=== PATIENT | female | born 1985 | race Caucasian/White ===

== ENCOUNTER 2016-10-20 10:13 | Inpatient (IN) | payer MEDICAID ==
[~2016-10-20] VITALS: Ht 157.5 cm; Wt 109.8 kg
[~2016-10-20 10:13] MED LIST: OXYTOCIN 30 UNITS/LR 500 ML BAG IV ONE
[2016-10-20 10:21] VITALS: BP 132/84; PULSE 113; RESP 19; Ht 157.5 cm; Wt 109.8 kg
--- NOTE | 2016-10-20 10:36 | TRIAGE ---
OB Triage Datetime Report Generated by CPN: 10/20/2016 10:36 Datetime: 10/20/2016 10:24 Vaginal Exam Dilatation (cms): 1.0 Effacement (%): 50 Station: -3 Exam By: VALERIE REYNOSO Vaginal Bleeding: None Cervix, Consistency: Soft Cervix, Position: Midposition Datetime: 10/20/2016 10:19 Assessment Type: Triage Maternal Assessment Level of Consciousness: Fully Conscious DTR's/Clonus: DTRs 2+; No Clonus Headache: Denies Blurred Vision: No Respiratory Effort: Unlabored; Regular Rhythm; Equal Expansion Breath Sounds, Left: Clear and Equal Breath Sounds, Right: Clear and Equal Nausea/Vomiting: Denies RUQ Epigastric Pain: Denies Lower Extremities Edema: None Degree: None Upper Extremities Edema: None Degree: None Facial Edema: None Fall Risk Assessment History of Falling: (0) No Secondary Diagnosis: (0) No Ambulatory Aid: (0) Bedrest/Nurse Assist IV Therapy: (0) No Gait: (0) Normal/Bedrest/Immobile Mental Status: (0) Oriented to Own Ability Fall Score: 0 Fall Risk Score Definition: No Risk: No action required Datetime: 10/20/2016 10:15 EGA: 36.2 Datetime: 10/20/2016 10:12 Time of Arrival: 10/20/2016 10:12 Arrived By: Ambulatory Arrived From: Home Chief Complaint: PT CAME IN C/O POSSIBLE SROM SINCE 0600 THIS AM, PT STYATES FLUID BEEN LIKE YELLO WISH COLOR AND C/O CONT LEAKING SINCE THEN. DENIES ANY OTHER COMPLAINT AT THIS TIME Movement: Present Contractions: Denies/Absent Rupture of Membranes: Unsure Vaginal Bleeding: None Vaginal Discharge: Denies Recent Sexual Intercouse: Denies Abdominal Trauma: Not Applicable Patient Complaints: Other Additional Patient Complaints: NONE Time Provider Notified: 10/20/2016 10:32 Provider Notified: FROYLAN Initial Plan: MONITOR, NITRAZINE TEST, VE
[2016-10-20] MEDS ORDERED: METHYLERGONOVINE 0.2 MG INJ IM PRN ×2 (11:00→23:30)
[2016-10-20] MEDS ORDERED: CEFAZOLIN 2 GM/50 ML (PMX) 50 ML IV SCH (11:00)
[2016-10-20] MEDS ORDERED: OXYTOCIN 30 UNITS/LR 500 ML IV PRN ×2 (11:00→23:30)
[2016-10-20] MEDS ORDERED: CARBOPROST 250 MCG INJ IM PRN ×2 (11:00→23:30)
[2016-10-20] MEDS ORDERED: MISOPROSTOL 200 MCG TAB PR PRN ×2 (11:00→23:30)
[2016-10-20] MEDS ORDERED: OXYTOCIN 30 UNITS/LR 500 ML IV SCH ×3 (11:00→14:00)
--- NOTE | 2016-10-20 11:31 | RADRPT ---
PROCEDURE: OB ultrasound for biophysical profile CLINICAL INDICATION: Spontaneous rupture of membranes TECHNIQUE: Multiple sonographic images of the pelvis were obtained. Transabdominal views of the g ravid uterus are available for review. The images were reviewed on a PACS workstation. COMPARISON: None FINDINGS: breathing movement = 2/2 tone = 2/2 motion = 2/2 BRADEN = 2/2 BRADEN = 7.2 cm Single live intrauterine with cardiac activity of 144 bpm. position is cephal ic. The placenta is anterior. IMPRESSION: 1. Single live intrauterine gestation. 2. Biophysical profile = 8/8. 3. BRADEN = 7.2 cm. RPTAT: HH .Crys Vizcaino MD, MD Date Time Electronically viewed and signed by .Crys Vizcaino MD, on 10/20/2016 11:31 .G/
[2016-10-20 11:57] LABS: ADD SCAN DIFF NO
[2016-10-20 12:09] LABS: BASOPHILS % 0.3 % (0.0-2.0); EOSINOPHILS % 0.2 % (0.0-7.0); HEMATOCRIT 40.1 % (37.0-47.0); HEMOGLOBIN 13.4 g/dl (12.0-16.0); LYMPHOCYTES # 3.1 10^3/ul (0.8-2.9); LYMPHOCYTES % 28.2 % (15.0-51.0); MEAN CORPUSCULAR HEMOGLOBIN 27.9 pg (29.0-33.0); MEAN CORPUSCULAR HGB CONC 33.4 g/dl (32.0-37.0); MEAN CORPUSCULAR VOLUME 83.4 fl (82.0-101.0); MEAN PLATELET VOLUME 11.8 fl (7.4-10.4); MONOCYTE # 0.7 10^3/ul (0.3-0.9); NEUTROPHIL # 7.1 10^3/ul (1.6-7.5); PLATELET COUNT 247 10^3/UL (140-415); RED BLOOD COUNT 4.81 10^6/ul (4.20-5.40); WHITE BLOOD COUNT 10.9 10^3/ul (4.8-10.8)
[2016-10-20 12:13] LABS: INR 1.01; PROTIME 13.3 Sec (12.2-14.2)
[2016-10-20 12:14] LABS: PARTIAL THROMBOPLASTIN TIME 28.7 Sec (25.0-35.0)
[2016-10-20] MEDS: LACTATED RINGER'S 1,000 ML IV SCH ×3 (12:35→23:12)
[2016-10-20] MEDS ORDERED: AMPICILLIN 2 GM/NS (PMX) 100 ML IV ONE (14:00)
[2016-10-20] MEDS ORDERED: AMPICILLIN 1 GM/NS (PMX) 50 ML IV SCH (18:00)
--- NOTE | 2016-10-20 18:18 | PREOPHP ---
DATE OF ADMISSION: 10/20/2016 HISTORY OF PRESENT ILLNESS: A 31-year-old female 3, para 1-1-0-2, estimated date of deliver y 11/17/2016 at 36 weeks' gestation presented with spontaneous rupture of membranes. PAST MEDICAL HISTORY: Unremarkable. PAST SURGICAL HISTORY: section x2. ALLERGIES: NO KNOWN ALLERGIES. FAMILY HISTORY: Noncontributory. PHYSICAL EXAMINATION: VITAL SIGNS: Patient is afebrile. Vital signs stable. HEAD, NECK AND CHEST: Within normal limits. ABDOMEN: Soft, nontender and gravid. EXTREMITIES: Within normal limits. NEUROLOGIC: Within normal limits. IMPRESSION: at 36 weeks with previous section x2. Spontaneous rupture of membra raquel. The patient desires sterilization. PLAN: Delivery by repeat section and bilateral tubal ligation. Risks, benefits and altern atives of the procedure were explained to the patient. The patient has been counseled about all of her contraceptive options. It was explained to the patient that with bilateral tubal ligation there is a chance of failure resulting in ectopic and/or intrauterine . After residential substance abuse counselor ing, the patient said she understood and gave informed consent for the procedures. Dictated By: EDGAR CALVERT/NTS Conf#: [id number] DID#: [id number]
[2016-10-20] MEDS ORDERED: morphine SULFATE/PF (10 MG/10 ML) INJ ONE (19:08)
[2016-10-20] MEDS ORDERED: ONDANSETRON 4 MG INJ ONE (19:09)
[2016-10-20] MEDS ORDERED: OXYTOCIN 10 UNIT INJ ONE (19:09)
[2016-10-20] MEDS ORDERED: PHENYLephrine (100 MCG/ML) 5ML SYG ONE (19:09)
--- NOTE | 2016-10-20 22:01 | DELSUM ---
Delivery Summary A-C Datetime Report Generated by CPN: 10/20/2016 22:00 DELIVERY PERSONNEL Document Processing Specialist: Tran, Michelle MATERNAL INFORMATION Delivery Anesthesia: Spinal Medications in Delivery: SEE ANESTHESIA RECORDS Estimated Blood Loss (ml): 500 Placenta Cultured: No Maternal Complications: PROM; Other RN Comments: 109.8kg, bmi 44.3, #3 r c/s, prom at 36.2wks, LABOR SUMMARY EDC: 11/15/2016 00:00 No. Babies in Womb: 1 Attempted: No Labor Anesthesia: None LABOR INFORMATION Reason for Induction: Not Applicable Onset of Labor: 10/20/2016 06:00 Oxytocin: N/A Group B Beta Strep: Done, Result Unknown Antibiotics # of Doses: X3 Antibiotics Time of Last Dose: 10/20/2016 19:15 Steroids Given: None Reason Steroids Not Administered: Not Applicable MEMBRANES Membranes Rupture Method: Spontaneous Rupture of Membranes: 10/20/2016 06:00 Length of Rupture (hr): 13.73 Amniotic Fluid Color: Clear Amniotic Fluid Amount: Moderate Amniotic Fluid Odor: None STAGES OF LABOR Stage 3 hr: 0 Stage 3 min: 2 Total Time in Labor hr: 13 Total Time in Labor min: 46 CSECTION DELIVERY Primary Indication: Repeat Elective Secondary Indication: Repeat Elective CSection Urgency: Elective CSection Incidence: Repeat Labor: No Labor Elective: Elective CSection Incision: Lower Uterine Transverse BABY A INFORMATION Infant Delivery Date/Time: 10/20/2016 19:44 Method of Delivery: Born in Route : No : N/A Forceps: N/A Vacuum Extraction: N/A Shoulder Dystocia : N/A SHOULDER DYSTOCIA BABY A Infant Delivery Date/Time: 10/20/2016 19:44 PRESENTATION/POSITION BABY A Presentation: Cephalic Cephalic Presentation: Vertex Breech Presentation: N/A PLACENTA INFORMATION BABY A Placenta Delivery Time : 10/20/2016 19:46 Placenta Method of Delivery: Manual Removal Placenta Status: Delivered SCORES BABY A Heart Rate 1 min: >100 bpm Resp Effort 1 min: Good Cry Reflex Irritability 1 min: Cough/Sneeze/Pulls Away Muscle Tone 1 min: Active Motion Color 1 min: Blue/Pale Resuscitation Effort 1 min: Tactile Stimulation SCORE 1 MIN: 8 Heart Rate 5 min: >100 bpm Resp Effort 5 min: Good Cry Reflex Irritability 5 min: Cough/Sneeze/Pulls Away Muscle Tone 5 min: Active Motion Color 5 min: Body [address], Extremit Blue Resuscitation Effort 5 min: Tactile Stimulation SCORE 5 MIN: 9 INFORMATION BABY A Gestational Age at Delivery: 36.2 Gestational Status: Late - 34- 36.6 Weeks Infant Outcome : Liveborn Condition : Stable Sex: Male IDENTIFICATION/MEDS BABY A ID Band Number: [id number] ID Band Location: Right Leg; Left Arm Sensor Applied: Yes Sensor Number: [id number] Sensor Location : Cord Clamp Vitamin K Given : Not Given Erythromycin Given: Not Given WEIGHT/LENGTH BABY A Infant Birthweight (gm): 2605 Infant Weight (lb): 5 Infant Weight (oz): 12 Length (in): 17.50 Length (cm): 44.45 CORD INFORMATION BABY A No. Cord Vessels: 3 Nuchal Cord : N/A Cord Blood Taken: Yes Suction: Mouth; Nose ASSESSMENT BABY A Complications: None Physical Findings at Delivery: Within Normal Limits Respirations: Appears Normal Benefits Coordinator/ALS Called : No Infant Care By: Heather REGAN Transferred To: Remains with Mother
--- NOTE | 2016-10-20 22:16 | OPR ---
DATE OF OPERATION: 10/20/2016 PREOPERATIVE DIAGNOSES: 1. at 36 weeks with previous section x2, with spontaneous rupture of membranes. 2. The patient desires surgical sterilization. POSTOPERATIVE DIAGNOSES: 1. at 36 weeks with previous section x2, with spontaneous rupture of membranes. 2. The patient desires surgical sterilization. 3. Omental adhesions. OPERATION PERFORMED: Repeat low-transverse section, lysis of adhesions, bilateral tubal li gation. SURGEON: Edgar Montano MD INFORMATION SYSTEMS ARCHITECT: Betito Oliveira MD ANESTHESIA: Spinal. ANESTHESIOLOGIST: Vinh Martinez MD PROCEDURE: The patient was taken to the operating room and placed on the operating table. After rodriguez ccessful spinal anesthesia was given, the patient was placed in supine position. The area was prepa red and draped in the usual sterile fashion. Spinal anesthesia was tested and was satisfactory. Us ing a scalpel, a Pfannenstiel incision was made about 2 fingerbreadths above the symphysis pubis. T he incision was carried to the fascia. The fascia was incised and extended bilaterally with King sc issors. Two Kochers were used to separate the fascia from the muscle. The muscle was dissected in midline down to peritoneum. The peritoneum was secured with 2 Kellys and incised with Metzenbaum sc issors. Upon entering the peritoneal cavity, there were omental adhesions noted to the anterior asp ect of the uterus. Using Bovie, sharp lysis of adhesions was performed. Using a scalpel, a small t ransverse incision was made on the lower segment of the uterus. Upon entering the uterine cavity, b andage scissors were inserted to extend the incision bilaterally, curved up. Baby was delivered fro m cephalic presentation. After suctioning clear of amniotic fluid, the baby was handed off to the n eonatologist in attendance. Apgars were 8 and 9. The placenta was delivered without difficulty. U terus was closed with #1 Monocryl continuous locked. After assuring hemostasis, both ovaries and tu bes were inspected, all looked normal. The right fallopian tube was grasped with a Anza clamp. Using 0 plain suture ligature, a 5 cm segment of the right fallopian tube was doubly ligated. Using Metzenbaum scissors, a portion of the right fallopian tube above the ligated area was excised and s ent to pathology. Same procedure was repeated on the left fallopian tube. After assuring hemostasi s, the peritoneal cavity was irrigated with warm saline. The peritoneum was closed with 2-0 Vicryl continuous. The fascia was closed with #1 Vicryl continuous in 2 segments. Subcutaneous tissue was reapproximated with 2-0 plain. The skin was closed with perla. ESTIMATED BLOOD LOSS: 500 mL. COMPLICATIONS: None. COUNTS: All counts were correct. Dictated By: EDGAR CALVERT/RENALDO Conf#: [id number] DID#: [id number]
[2016-10-20 23:00] VITALS: BP 109/55; PULSE 73; RESP 20
[2016-10-20] MEDS ORDERED: OXYCODONE/ACETAMINOPHEN (5/325) TAB PO PRN ×2 (23:30)
[2016-10-20] MEDS ORDERED: LANOLIN 7 GM TUBE TOP PRN (23:30)
[2016-10-21] MEDS: OXYTOCIN 30 UNITS/LR 500 ML IV SCH ×2 (00:50→04:43)
[2016-10-21] MEDS: KETOROLAC 30 MG INJ IV PRN ×2 (02:00→16:06)
[2016-10-21 04:00] VITALS: BP 102/46; PULSE 80; RESP 18
[2016-10-21 08:19] LABS: ADD SCAN DIFF NO
[2016-10-21 08:28] LABS: BASOPHILS % 0.2 % (0.0-2.0); EOSINOPHILS # 0.1 10^3/ul (0.0-0.5); EOSINOPHILS % 0.8 % (0.0-7.0); HEMOGLOBIN 11.4 g/dl (12.0-16.0); LYMPHOCYTES # 2.2 10^3/ul (0.8-2.9); LYMPHOCYTES % 24.1 % (15.0-51.0); MEAN CORPUSCULAR HEMOGLOBIN 27.7 pg (29.0-33.0); MEAN CORPUSCULAR HGB CONC 32.6 g/dl (32.0-37.0); MONOCYTE # 0.9 10^3/ul (0.3-0.9); MONOCYTES % 9.8 % (0.0-11.0); NEUTROPHIL # 5.9 10^3/ul (1.6-7.5); NEUTROPHILS % 64.9 % (39.0-77.0); PLATELET COUNT 176 10^3/UL (140-415); RED BLOOD COUNT 4.12 10^6/ul (4.20-5.40); RED CELL DISTRIBUTION WIDTH 14.3 % (11.5-14.5); WHITE BLOOD COUNT 9.1 10^3/ul (4.8-10.8)
[2016-10-21 08:30] VITALS: BP 110/55; PULSE 81; RESP 20
[2016-10-21] MEDS: SENNA/DOCUSATE NA (8.6MG/50MG) TAB PO SCH ×2 (09:38→21:08)
--- NOTE | 2016-10-21 15:56 | QN ---
Documentation Comment No complaint Afebrile VSS Abdomen soft POD #1 Ambulate Advance diet. EDGAR GALEANO MD Oct 21, 2016 15:55
[2016-10-21] MEDS: LACTATED RINGER'S 1,000 ML IV SCH ×3 (16:32→23:12)
[2016-10-21 16:49] VITALS: BP 104/53; PULSE 91; RESP 18
[2016-10-21 20:00] VITALS: BP 111/63; PULSE 95; RESP 18
[2016-10-21] MEDS: IBUPROFEN 800 MG TAB PO SCH (21:53)
[2016-10-22 00:45] VITALS: BP 97/53; PULSE 73; RESP 20
[2016-10-22 04:45] VITALS: BP 95/54; PULSE 80; RESP 18
[2016-10-22] MEDS: IBUPROFEN 800 MG TAB PO SCH ×3 (06:13→21:42)
[2016-10-22] MEDS: LACTATED RINGER'S 1,000 ML IV SCH (07:12)
[2016-10-22 08:00] VITALS: BP 115/58; PULSE 83; RESP 18
[2016-10-22] MEDS: SENNA/DOCUSATE NA (8.6MG/50MG) TAB PO SCH ×2 (09:33→21:14)
[2016-10-22 16:00] VITALS: BP 96/58; PULSE 81; RESP 18
--- NOTE | 2016-10-22 18:48 | QN ---
Documentation Comment no complaint Afebrile VSS Abdomen soft Stable Continue with present care. EDGAR GALEANO MD Oct 22, 2016 18:47
[2016-10-22 20:00] VITALS: BP 120/71; PULSE 87; RESP 18
[2016-10-23 03:45] VITALS: BP 93/54; PULSE 78; RESP 19
[2016-10-23] MEDS: IBUPROFEN 800 MG TAB PO SCH ×3 (05:33→18:50)
[2016-10-23 08:30] VITALS: BP 110/59; PULSE 69; RESP 18
[2016-10-23] MEDS ORDERED: DIPHTH/TET/ACEL PERTUSS (ADULT) 0.5 ML VIAL IM* ONE (09:00)
[2016-10-23] MEDS: SENNA/DOCUSATE NA (8.6MG/50MG) TAB PO SCH (09:00)
[2016-10-23 16:00] VITALS: BP 108/65; PULSE 77; RESP 20
--- NOTE | 2016-10-23 20:02 | DS ---
DATE OF ADMISSION: 10/20/2016 DATE OF DISCHARGE: 10/23/2016 ADMITTING DIAGNOSES: at 36 weeks with spontaneous rupture of membranes. HISTORY: A 31-year-old female 3, para 1-1-0-2 at admission, para 1-2-0-3 at time of dischar , at 36 weeks' gestation presented with spontaneous rupture of membranes. PAST SURGICAL HISTORY: sections x2. HOSPITAL COURSE: On 10/20/2016 after obtaining informed consent, the patient underwent a repeat low transverse section, lysis of adhesions, bilateral tubal ligation. The patient's operation was uncomplicated. Postoperatively, the patient was given clear liquid diet, which was advanced to regular diet, which she tolerated well. The patient discharged on postop day #3 after having had a dequate bladder and bowel function. CONDITION ON DISCHARGE: Stable. DISCHARGE INSTRUCTIONS DIET: Regular. ACTIVITIES: Pelvic rest and no strenuous activities. MEDICATIONS: 1. Motrin as needed for pain. 2. Continue with vitamins and ferrous sulfate. Follow up in clinic in 1 week. FINAL DIAGNOSES: 1. at 36 weeks, delivered by section. 2. spontaneous rupture of membranes. 3. Previous section. 4. Omental adhesions. 5. Voluntary sterilization. 6. Mother with single liveborn. Dictated By: EDGAR CALVERT/RENALDO Conf#: [id number] DID#: [id number]
== END 2016-10-23 20:30 | disposition home or self-care (01) | DRG 766 ==
LOC: L-D 10:13 → OBT 10:13 → L-D 10:57 → PP1 23:00
PROVIDERS: ADMIT Obstetrics & Gynecology; ATTEND Obstetrics & Gynecology
PROC: 0UB70ZZ Excision of Bilateral Fallopian Tubes, Open Approach (ICD-10-PCS; 2016-10-20)
PROC: 10D00Z1 Extraction of Products of Conception, Low, Open Approach (ICD-10-PCS; principal; 2016-10-20 16:15)
DX: O34.211 Maternal care for low transverse scar from previous cesarean delivery (principal); Z30.2 Encounter for sterilization; Z3A.36 36 weeks gestation of pregnancy; Z37.0 Single live birth
CPT/HCPCS: 76818; 85025; 85610; 85730; 86592; 86850; 86900; 86901; 87340; 88302; 90715; 94760; 99464; G0463; J0290; J0690; J1885; J2274; J2370; J2405; J2590; J7120